=== PATIENT | female | born 1970 | race Caucasian/White ===

== ENCOUNTER 2021-03-02 07:07 | Day surgery (SDC) | payer OTHER ==
[~2021-03-02] VITALS: Ht 165.1 cm; Wt 65.4 kg
[~2021-03-02 07:07] MED LIST: CLIMARA1 EACH PO; MULVITA PO; PROG100 PO; THERA-D2000 UNIT PO
--- NOTE | 2021-03-02 07:40 | NUR ---
Ambulatory in Day Surgery. Patient states colon prep results clear. History, Chart, Medications and Allergies reviewed before start of procedure.Lungs clear T/O to Auscultation. Pre-Op teaching done. Pt verbalizes understanding. Patient States Post-Procedure ride home has been arranged. Patient confirms NPO status and agrees with scheduled surgery.
--- NOTE | 2021-03-02 07:59 | NUR ---
03/02/21 0759 Vega Kaur History, Chart, Medications and Allergies reviewed before start of procedure.MONITOR INTACT WITH CONTINUOUS PULSE OXIMETRY AND INTERMITTENT BP.3-LEAD EKG REVIEWED WITH PHYSICIAN PRIOR TO START OF PROCEDURE.O2 VIA N/C INTACT THROUGHOUT SEDATION/PROCEDURE. PATIENT DETERMINED TO BE ASA APPROPRIATE FOR PROPOFOL SEDATION PRIOR TO START OF PROCEDURE BY DR. DAMICO.
--- NOTE | 2021-03-02 09:08 | NUR ---
Patient up to Ambulate independently. Gait steady. Discharge instructions reviewed with patient/. Patient verbalizes understanding. Copy given to patient to take home.
== END 2021-03-02 09:03 | disposition home or self-care (01) ==
LOC: ORSCMMR 07:07 → ORD 08:00 → ORSCMMR 09:03
PROVIDERS: Internal Medicine Gastroenterology
PROC: 0DBH8ZX Excision of Cecum, Via Natural or Artificial Opening Endoscopic, Diagnostic (ICD-10-PCS; principal; 2021-03-02 08:00)
DX: K62.5 Hemorrhage of anus and rectum (principal); K55.20 Angiodysplasia of colon without hemorrhage; K64.8 Other hemorrhoids; Z79.899 Other long term (current) drug therapy
CPT/HCPCS: 88305; J2250; J2704; J7120

== ENCOUNTER → 2024-08-04 | Outpatient (CLI) | payer OTHER | LOC: LAB 07:52 → PLD 07:52 → LAB SHORT 07:52 | DX: N85.8 Other specified noninflammatory disorders of uterus (principal) | CPT/HCPCS: 88305 ==

== ENCOUNTER 2025-10-22 13:24 | Day surgery (SDC) | payer OTHER ==
[~2025-10-22] VITALS: Ht 165.1 cm; Wt 69.2 kg
[2025-10-22] VITALS (7 sets, daily range): BP systolic 112–139; BP diastolic 62–101
[~2025-10-22 13:24] MED LIST changes: +ESTRADIOL1 MG PO; +FISH OIL 1,0001 EA10 PO; +MULTI-VITAMIN1 EAC2 PO
[2025-10-22] MEDS ORDERED: FentaNYL Citrate 50 MCG/ML 2 ML Injection ONE (14:05)
[2025-10-22] MEDS ORDERED: Midazolam HCl 1MG / ML 2ML Vial ONE (14:06)
[2025-10-22] MEDS ORDERED: HYDROmorphone HCl/Pf 1MG SYR IV PRN (14:15)
[2025-10-22] MEDS ORDERED: Ondansetron HCl 2 MG / ML 2ML Vial IV PRN (14:15)
[2025-10-22] MEDS ORDERED: FentaNYL Citrate 50 MCG/ML 2 ML Injection IV PRN ×2 (14:15)
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
[2025-10-22] MEDS ORDERED: Ondansetron HCl 2 MG / ML 2ML Vial ONE (14:52)
[2025-10-22] MEDS ORDERED: Ketorolac Tromethamine 30mg Vial ONE (14:52)
[2025-10-22] MEDS ORDERED: Dexamethasone Sod Phos 10 MG/ML 1ML VIAL ONE (14:52)
--- NOTE | 2025-10-22 16:36 | NUR ---
DISCHARGE INSTRUCTIONS PT A&OX4, BREATHING RA, NO NAUSEA, TOLERATING PO INTAKE, PO PAIN PILL GIVEN PER MD ORDERS FOR ABDOMINAL CRAMPING. SCANT AMOUNT OF BLOODY DRAINAGE TO BREANNA PAD. PT UP AND VOIDED IN TOILET PRIOR TO DISCHARGE. Patient up to Ambulate independently. Gait steady. Discharge instructions reviewed with patient. Patient verbalizes understanding. Copy given to patient to take home. Discharged via wheelchair to private car for ride home.
== END 2025-10-22 16:30 | disposition home or self-care (01) ==
LOC: ORSCMMR 13:24 → ORD 14:00 → ORSCMMR 16:00 → ORD 11-04 12:30
PROVIDERS: Obstetrics & Gynecology
PROC: 0UB98ZZ Excision of Uterus, Via Natural or Artificial Opening Endoscopic (ICD-10-PCS; principal; 2025-10-22 15:00)
DX: N95.0 Postmenopausal bleeding (principal); N84.0 Polyp of corpus uteri
CPT/HCPCS: 88305; A9270; J1100; J1885; J2250; J2405; J2704; J3010; J7120